=== PATIENT | male | born 1970 | race Caucasian/White ===

== ENCOUNTER 2017-08-19 09:29 | Emergency (ER) | payer BC, SELFPAY | END 2017-08-19 10:08 | disposition home or self-care (01) | LOC: NAV ERS 09:29 | DX: K64.4 Residual hemorrhoidal skin tags (principal) | CPT/HCPCS: 99282 ==

== ENCOUNTER 2019-11-14 17:31 | Emergency (ER) | payer SELFPAY ==
[2019-11-14] MEDS ORDERED: HYDROcodone/Acetaminophen 5/325 mg Tablet ONE (18:23)
--- NOTE | 2019-11-14 18:32 | RAD ---
TWO VIEWS RIGHT FOREARM: 11/14/19 HISTORY: Pain/injury right forearm and elbow. FINDINGS: There is an avulsion fracture involving the lateral aspect of the right radial head with associated s mall joint effusion. No additional fracture is seen, and there is no dislocation. IMPRESSION: Minimally displaced right radial head fracture with associated joint effusion. POS: TOMIC
--- NOTE | 2019-11-14 18:33 | RAD ---
FOUR VIEWS RIGHT ELBOW: 11/14/19 HISTORY: Right elbow pain after injury. FINDINGS: There is a mildly and displaced fracture involving the volar and lateral aspect of the radi al head. Associated joint effusion is identified. No additional fracture is seen. There is no disloca tion. IMPRESSION: Minimally and displaced fracture right radial head with associated joint effusion. POS: [facility]
== END 2019-11-14 18:35 | disposition home or self-care (01) ==
LOC: NAV ERS 17:31
DX: S52.121A Displaced fracture of head of right radius, initial encounter for closed fracture (principal); M19.90 Unspecified osteoarthritis, unspecified site; W11.XXXA Fall on and from ladder, initial encounter
CPT/HCPCS: 29105

== ENCOUNTER 2024-04-27 21:41 | Emergency (ER) | payer SELFPAY ==
[2024-04-27] MEDS ORDERED: Aspirin Chewable 81 MG TAB ONE (22:35)
[2024-04-27] MEDS ORDERED: Mag-Al Plus 1200/1200/120 MG (30 mL) UDCUP ONE (22:36)
[2024-04-27] MEDS ORDERED: Ondansetron PF 4 MG/2 ML Vial ONE (22:36)
[2024-04-27] MEDS ORDERED: Lidocaine Viscous Sol 2% 15 ml UD Cup ONE (22:36)
[2024-04-27 22:39] LABS: #Basophils 0.1 thou/uL (0.0-0.2); #Eosinophils 0.2 thou/uL (0.0-0.7); #Lymphocytes 1.7 thou/uL (1.20-3.40); #Monocytes 0.5 thou/uL (0.11-0.59); #Neutrophils 6.6 thou/uL (1.40-6.50); %Basophils 1.3 % (0.0-1.0); %Eosinophils 2.6 % (0.0-10.0); %Lymphocytes 18.3 % (21.0-51.0); %Monocytes 5.6 % (0.0-10.0); %Neutrophils 72.2 % (42.0-75.0); Hematocrit 52.7 % (42.0-52.0); Hemoglobin 16.5 g/dL (14.0-18.0); Mean Corpuscular HGB CONC 31.3 g/dL (32.0-36.0); Mean Corpuscular Hemoglobin 27.1 pg (27.0-31.0); Mean Corpuscular Volume 86.7 fl (78.0-98.0); Mean Platelet Volume 6.4 fL (7.4-10.4); Platelet Count 213 10x3/uL (130-400); RBC Distribution Width 11.2 % (11.5-14.5); Red Blood Cell (RBC) Count 6.07 mill/uL (4.70-6.10); White Blood Cell (WBC) Count 9.1 10x3/uL (4.8-10.8)
[2024-04-27 22:58] LABS: Troponin I Less than 0.010 ng/mL (< 0.028)
[2024-04-27 23:07] LABS: ALT (SGPT) 18 U/L (Less than 45); AST (SGOT) 22 U/L (11-34); Albumin 4.2 g/dL (3.1-4.5); Alkaline Phosphatase 54 U/L (40-110); Anion Gap 9 mmol/L (10-20); BUN (Urea Nitrogen) 12 mg/dL (8.4-25.7); Bilirubin, Total 0.5 mg/dL (0.3-1.2); Calc. Creatinine Clearance 0 mL/min (70-130); Calcium 9.4 mg/dL (7.8-10.44); Carbon Dioxide 29 mmol/L (22-29); Chloride 103 mmol/L (98-107); Estimated GFR 56; Globulin 2.4 g/dL (2.4-3.5); Glucose 113 mg/dL (70-105); Lipase 69 U/L (8-78); Potassium 4.4 mmol/L (3.5-5.1); Protein, Total 6.6 g/dL (6.0-8.3); Sodium 137 mmol/L (136-145)
[2024-04-28] MEDS ORDERED: Pantoprazole 40 MG VIAL ONE (00:02)
[2024-04-28 02:05] LABS: Troponin I Less than 0.010 ng/mL (< 0.028)
== END 2024-04-28 02:58 | disposition home or self-care (01) ==
LOC: NAV ERS 21:41
DX: R10.13 Epigastric pain (principal); R11.0 Nausea
CPT/HCPCS: 36415; 71045; 80053; 83690; 84484; 85025; 93005; 96374; 96375; J2405; J2470